=== PATIENT | female | born 1945 ===

== ENCOUNTER 2021-10-31 05:45 | Day surgery (SDC) | payer OTHER | END 2021-10-31 10:30 | disposition home or self-care (01) | LOC: AMB-ENDOS 05:45 | PROVIDERS: ATTEND Colon & Rectal Surgery | DX: D12.0 Benign neoplasm of cecum (principal); Z20.822 Contact with and (suspected) exposure to COVID-19; I10 Essential (primary) hypertension; E03.9 Hypothyroidism, unspecified; Z79.01 Long term (current) use of anticoagulants; I49.9 Cardiac arrhythmia, unspecified; Z88.8 Allergy status to other drugs, medicaments and biological substances ==

== ENCOUNTER 2022-05-08 06:56 | Day surgery (SDC) | payer OTHER | END 2022-05-08 12:05 | disposition home or self-care (01) | LOC: AMB-ENDOS 06:56 → CIR.AMB 13:45 | PROVIDERS: ATTEND Colon & Rectal Surgery | DX: D12.0 Benign neoplasm of cecum (principal); D12.2 Benign neoplasm of ascending colon; K57.90 Diverticulosis of intestine, part unspecified, without perforation or abscess without bleeding; Z20.822 Contact with and (suspected) exposure to COVID-19; I10 Essential (primary) hypertension; E03.9 Hypothyroidism, unspecified; K64.9 Unspecified hemorrhoids ==

== ENCOUNTER 2022-10-30 07:55 | Day surgery (SDC) | payer OTHER | END 2022-10-30 13:55 | disposition home or self-care (01) | LOC: AMB-ENDOS 07:55 → CIR.AMB 14:30 | PROVIDERS: ATTEND Colon & Rectal Surgery | DX: D12.3 Benign neoplasm of transverse colon (principal); K55.20 Angiodysplasia of colon without hemorrhage; K64.8 Other hemorrhoids; Z20.822 Contact with and (suspected) exposure to COVID-19; Z88.6 Allergy status to analgesic agent ==